=== PATIENT | female | born 1955 | race Caucasian/White ===

== ENCOUNTER 2022-03-03 09:38 | Emergency (ER) | payer OTHER ==
[~2022-03-03] VITALS: Ht 170.2 cm; Wt 76.2 kg
[2022-03-03] MEDS ORDERED: ZOLPIDEM TARTRA10 MG PO (09:52)
[2022-03-03] MEDS ORDERED: PROAIR HFA8.5 GM IH (09:52)
[2022-03-03] MEDS ORDERED: CLONAZEPAM0.5 MG PO (09:52)
[2022-03-03] MEDS ORDERED: SYNTHROID88 MCG PO (09:52)
[2022-03-03] MEDS ORDERED: BUPROPION XL300 MG PO (09:52)
== END 2022-03-03 17:21 | disposition home or self-care (01) ==
LOC: ER → EDBD 09:48 → ER 09:48
DX: Z01.818 Encounter for other preprocedural examination (principal); E03.9 Hypothyroidism, unspecified; Z88.2 Allergy status to sulfonamides

== ENCOUNTER 2022-03-07 11:24 | Day surgery (SDC) | payer OTHER ==
[~2022-03-07 11:24] MED LIST: BUPROPION XL300 MG PO; CLONAZEPAM0.5 MG PO; PROAIR HFA8.5 GM IH; SYNTHROID88 MCG PO; ZOLPIDEM TARTRA10 MG PO
== END 2022-03-07 18:15 | disposition home or self-care (01) ==
LOC: CIR.AMB → EDBD → CIR.AMB 11:24
PROVIDERS: ATTEND Orthopaedic Surgery
DX: S62.617A Displaced fracture of proximal phalanx of left little finger, initial encounter for closed fracture (principal); S63.697A Other sprain of left little finger, initial encounter; Z88.2 Allergy status to sulfonamides; J45.909 Unspecified asthma, uncomplicated; Z20.822 Contact with and (suspected) exposure to COVID-19

== ENCOUNTER 2022-03-30 07:23 | Outpatient (CLI) | payer OTHER | END 2022-03-30 07:29 | disposition home or self-care (01) | LOC: RAD 07:23 | PROVIDERS: ATTEND Orthopaedic Surgery | DX: S63.287D Dislocation of proximal interphalangeal joint of left little finger, subsequent encounter (principal) ==

== ENCOUNTER 2022-04-27 11:21 | Outpatient (CLI) | payer OTHER | END 2022-04-27 11:27 | disposition home or self-care (01) | LOC: RAD 11:21 | PROVIDERS: ATTEND Orthopaedic Surgery | DX: M79.642 Pain in left hand (principal); M79.645 Pain in left finger(s) ==